=== PATIENT | female | born 1985 | race Two or more races ===

== ENCOUNTER 2017-12-14 08:31 | Emergency (ER) | payer OTHER ==
[~2017-12-14] VITALS: Ht 172.7 cm; Wt 68.5 kg
== END 2017-12-14 14:13 | disposition home or self-care (01) ==
LOC: ER 08:31
DX: Z34.01 Encounter for supervision of normal first pregnancy, first trimester (principal); K52.89 Other specified noninfective gastroenteritis and colitis

== ENCOUNTER 2018-04-29 16:07 | Inpatient (IN) | payer OTHER ==
[~2018-04-29] VITALS: Ht 172.7 cm; Wt 81.2 kg
[2018-06-28] MEDS ORDERED: OBSTETRIX EC C1 EACH PO (11:22)
[2018-06-28] MEDS ORDERED: IRON18 MG PO (11:22)
== END 2018-07-01 15:59 | disposition home or self-care (01) | DRG 775 ==
LOC: LDR 06-28 11:09 → OB/GYN 06-28 11:09 → LDR 07-05 16:06
PROC: 4A1HXCZ Monitoring of Products of Conception, Cardiac Rate, External Approach (ICD-10-PCS; 2018-06-28)
PROC: 10E0XZZ Delivery of Products of Conception, External Approach (ICD-10-PCS; principal; 2018-06-29)
PROC: 0W8NXZZ Division of Female Perineum, External Approach (ICD-10-PCS; 2018-06-29)
DX: O80 Encounter for full-term uncomplicated delivery (principal); Z3A.39 39 weeks gestation of pregnancy; Z37.0 Single live birth; Z22.330 Carrier of Group B streptococcus

== ENCOUNTER 2019-10-28 02:53 | Inpatient (IN) | payer OTHER ==
[~2019-10-28] VITALS: Ht 170.2 cm; Wt 73.9 kg
[~2019-10-28 02:53] MED LIST: IRON18 MG PO; OBSTETRIX EC C1 EACH PO
== END 2019-10-30 13:56 | disposition home or self-care (01) | DRG 807 ==
LOC: LDR 02:53 → OB/GYN 02:53
PROVIDERS: ADMIT Specialist
PROC: 10E0XZZ Delivery of Products of Conception, External Approach (ICD-10-PCS; principal; 2019-10-28)
PROC: 0KQM0ZZ Repair Perineum Muscle, Open Approach (ICD-10-PCS; 2019-10-28)
PROC: 10907ZC Drainage of Amniotic Fluid, Therapeutic from Products of Conception, Via Natural or Artificial Opening (ICD-10-PCS; 2019-10-28)
PROC: 4A1HXCZ Monitoring of Products of Conception, Cardiac Rate, External Approach (ICD-10-PCS; 2019-10-28)
DX: O70.1 Second degree perineal laceration during delivery (principal); Z37.0 Single live birth; Z3A.39 39 weeks gestation of pregnancy